=== PATIENT | male | born 1985 | race African-American/Black ===

== ENCOUNTER 2019-04-08 19:25 | Emergency (ER) | payer OTHER ==
[~2019-04-08] VITALS: Ht 180.3 cm; Wt 106.6 kg
[~2019-04-08 19:25] MED LIST: FLUO10CA25 MT; MIRT15TA MT
[2019-04-08 22:39] LABS: HEMATOCRIT. 44.3 % (42.0-52.0); HEMOGLOBIN. 14.9 g/dL (14.0-18.0); LYMPHOCYTES % 39.8 % (20.0-50.0); MEAN CORPUSCULAR HEMOGLOBIN 30.3 pg (28.0-32.0); MEAN CORPUSCULAR VOLUME 90.3 fL (80.0-94.0); MEAN PLATELET VOLUME 8.3 fl (7.4-10.4); NEUTROPHILS % 40.2 % (40.0-76.0); PLATELET 372 x1000/uL (130-400); RED BLOOD CELL COUNT 4.91 mill/uL (4.7-6.1); RED CELL DISTRIBUTION WIDTH 14.2 % (11.6-14.6)
[2019-04-08 22:43] LABS: CHLORIDE 109 mEq/L (98-107)
[2019-04-08 22:52] LABS: CREATINE KINASE 518 IU/L (39-308)
[2019-04-08 23:10] VITALS: BP 123/71
== END 2019-04-09 00:20 | disposition home or self-care (01) ==
LOC: ER 19:25
DX: R07.89 Other chest pain (principal); F17.290 Nicotine dependence, other tobacco product, uncomplicated; J45.909 Unspecified asthma, uncomplicated; Z98.890 Other specified postprocedural states; F16.10 Hallucinogen abuse, uncomplicated; Z88.0 Allergy status to penicillin; Z79.899 Other long term (current) drug therapy
CPT/HCPCS: 36415; 71045; 82550; 84484; 93005; 99284

== ENCOUNTER 2019-05-02 05:27 | Emergency (ER) | payer OTHER ==
[~2019-05-02] VITALS: Ht 177.8 cm; Wt 98.3 kg
[2019-05-02 05:54] VITALS: BP 161/98
== END 2019-05-02 13:53 | disposition left against medical advice (07) ==
LOC: ER 05:27
DX: R07.89 Other chest pain (principal); Z53.21 Procedure and treatment not carried out due to patient leaving prior to being seen by health care provider